=== PATIENT | male | born 1950 | race Caucasian/White ===

== ENCOUNTER 2019-08-26 11:01 | Emergency (ER) | payer MEDICARE, OTHER ==
[2019-08-26 11:24] VITALS: BP 128/84
--- NOTE | 2019-08-26 11:36 | UC ---
Throat Pain/Nasal Jarvis HPI - HPI Summary HPI Summary: Travelled from [facility] 2 weeks ago, with onset of nasal congestion and cough after catching a chill while swimming with his granddaughter. Symptoms are persisting , and he is becoming shorth of breath. Has had several days of subjective fever and chills at night. He is current in his pneumonia vaccines, remote smoking hx. - History of Current Complaint Chief Complaint: UCRespiratory Stated Complaint: SINUS CONGESTION AND FEVER Time Seen by Provider: 08/26/19 11:28 Hx Obtained From: Patient Onset/Duration: Gradual Onset, Lasting Weeks - 2 Severity: Moderate Pain Intensity: 6 Cough: Sputum Appears - green Associated Signs & Symptoms: Positive: Hoarseness, Sinus Discomfort, Fever. Negative: Dysphagia - Epiglottits Risk Factors Epiglottis Risk Factors: Negative - Allergies/Home Medications Allergies/Adverse Reactions: Allergies Allergy/AdvReac Type Severity Reaction Status Date / Time No Known Allergies Allergy Verified 08/26/19 11:17 PMH/Surg Hx/FS Hx/Imm Hx Previously Healthy: Yes - Surgical History Surgical History: None - Family History Known Family History: Positive: Diabetes - both parents, Other - father of Alzheimer's dementia. - Social History Occupation: Employed Full-time - works for [employer]. Alcohol Use: Rare Substance Use Type: None Smoking Status (MU): Never Smoked Tobacco Review of Systems All Other Systems Reviewed And Are Negative: Yes Constitutional: Positive: Chills, Fatigue Skin: Positive: Negative Eyes: Positive: Negative ENT: Positive: Ear Ache, Sinus Congestion Respiratory: Positive: Shortness Of Breath, Cough Gastrointestinal: Positive: Negative Genitourinary: Positive: Negative Motor: Positive: Negative Neurovascular: Positive: Negative Musculoskeletal: Positive: Negative Neurological: Positive: Negative. Negative: Headache Is Patient Immunocompromised?: No Physical Exam Triage Information Reviewed: Yes Appearance: No Pain Distress, Ill-Appearing - congested, frequent cough Vital Signs: Initial Vital Signs Temp 97.6 F 08/26/19 11:13 Pulse 83 08/26/19 11:13 Resp 20 08/26/19 11:13 BP 128/84 08/26/19 11:13 Pulse Ox 98 08/26/19 11:13 Eyes: Positive: Conjunctiva Clear ENT: Positive: Pharyngeal erythema, TM dull - bilateral serous fluid Neck: Positive: Supple, Nontender, No Lymphadenopathy Respiratory: Positive: Decreased breath sounds, Rhonchi Cardiovascular: Positive: RRR, No Murmur Musculoskeletal Exam: Normal Diagnostics - Radiology No standard instances Radiology Interpretation Completed By: Radiologist - Dr. Martinez: no acute disease in the chest. Throat Pain/Nasal Course/Dx - Course Course Of Treatment: Begin azithromycin for treatment of bronchitis, possible Mycoplasma. - Differential Dx/Diagnosis Differential Diagnosis/HQI/PQRI: Sinusitis, URI, Other - bronchitis Provider Diagnosis: Bronchitis Discharge ED - Sign-Out/Discharge Documenting (check all that apply): Patient Departure All imaging exams completed and their final reports reviewed: Yes - Discharge Plan Condition: Stable Disposition: HOME Prescriptions: Azithromyxin LAZ (NF) [Z-Laz (Zithromax) 250 mg tabs #6] 2 tab PO .TODAY, THEN 1 DAILY #6 tab Patient Education Materials: Acute Bronchitis (ED) Referrals: No Primary Care Phys,NOPCP [Primary Care Provider] - Additional Instructions: As discussed, given duration of cough and development of fever, use of an antibitoic is reasoanble. Take the full course of azithromycin as directed. For cough suppression, you might try use of long acting Delsym (dextromethorphan ). - Billing Disposition and Condition Condition: STABLE Disposition: Home
== END 2019-08-26 12:31 | disposition home or self-care (01) ==
LOC: UCEAST 11:01
DX: J40 Bronchitis, not specified as acute or chronic (principal); Z87.891 Personal history of nicotine dependence
CPT/HCPCS: 71046; 99202; G0463